=== PATIENT | male | born 1970 | race Caucasian/White ===

== ENCOUNTER 2016-12-12 21:01 | Emergency (ER) | payer OTHER ==
[2016-12-12 21:06] VITALS: RESP 18
[2016-12-12] MEDS ORDERED: IPRATROPIUM/ALBUTEROL 3 ML DEYVIAL ONE (21:33)
--- NOTE | 2016-12-12 21:35 | EDPHY ---
H & P Stated Complaint: c/o cold sx x 1 week - Medical/Surgical History Hx Asthma: No Hx Chronic Respiratory Disease: No Hx Diabetes: No Hx Cardiac Disease: No Hx Renal Disease: No Hx Cirrhosis: No Hx Alcoholism: No Hx HIV/AIDS: No Hx Splenectomy or Spleen Trauma: No Other PMH: siezure - Social History Smoking Status: Former smoker Time Seen by Provider: 12/12/16 21:22 HPI/ROS: CHIEF COMPLAINT: Cough x3 weeks HISTORY OF PRESENT ILLNESS: 46-year-old immunocompetent male complaining of 3 weeks of productive cough. Saw his primary care provider today, prescribed antibiotics. Comes to the ER complaining of dyspnea, continued cough. No syncope or near syncope near syncope. No chest pain. No back or flank pain. No nuchal rigidity. No headache. PRIMARY CARE PROVIDER: Dr. Hayden Ibarra REVIEW OF SYSTEMS: A ten point review of systems was performed and is negative with the exception of the items mentioned in the HPI PAST MEDICAL & SURGICAL HISTORY: No pertinent medical or surgical history SOCIAL HISTORY: nonsmoker PHYSICAL EXAM (Prior to examination, patient consented to physical exam, hands were washed and my usual and customary physical exam procedures followed) 1) GENERAL: Well-developed, well-nourished, alert and oriented. Appears nontoxic . 2) HEAD: Normocephalic, atraumatic 3) HEENT: Pupils equal, round, reactive to light bilaterally. Sclera anicteric. Nasopharynx, oropharynx, clear, no lesions. No tonsillar enlargement tonsillar exudate. Ears bilaterally with normal tympanic membranes. 4) NECK: Full range of motion, no meningeal signs. 5) LUNGS: Clear auscultation bilaterally, no wheezes, no rhonchi, no retractions. 6) HEART: Regular rate and rhythm, no murmur, no heave, no gallop. 7) ABDOMEN: No guarding, no rebound, no focal tenderness, negative McBurney's, 8) MUSCULOSKELETAL: No peripheral edema or discoloration. 9) BACK: No CVA tenderness. 10) SKIN: No rash, no petechiae. 11) Psychiatric: Patient is oriented X 3, there is no agitation. DIFFERENTIAL DIAGNOSIS: In no particular include but limited to pneumonia, bronchitis, RI, PE (Lucrecia Davies) Constitutional: Initial Vital Signs Temperature (C) 37.1 C 12/12/16 21:04 Heart Rate 112 H 12/12/16 21:04 Respiratory Rate 18 12/12/16 21:04 Blood Pressure 141/91 H 12/12/16 21:04 O2 Sat (%) 93 12/12/16 21:04 O2 Delivery Mode Room Air Allergies/Adverse Reactions: oxycodone Allergy (Verified 12/12/16 21:06) Home Medications: Medication Instructions Recorded Benzonatate [Tessalon Pearles (RX)] 200 mg PO TID PRN #15 cap 12/12/16 Medical Decision Making - Diagnostics Imaging: PA and Lateral Chest History: Chest pain. Findings: The heart and mediastinum are normal. Pulmonary vascularity is normal. The lungs are clear. There is no pleural fluid. A pneumothorax is not identified. Impression: No significant radiographic abnormality. Specifically, a source for chest pain is not identified. Dictated By: Bob Pleitez MD Images reviewed by myself (Lucrecia Davies) ED Course/Re-evaluation: 10:35 p.m.: Patient has been re-evaluated with serial exams. Received DuoNeb treatment in the ER. Re-examined at this time. Lungs are clear bilaterally. He is feeling significant improvement would like to be discharged home. Recommend he continue antibiotics until finished. He already has albuterol meter dose inhaler recommend using this every 4 hours. He has been prescribed also Tessalon Perles. Usual and customary URI precautions and instructions provided. (Lucrecia Davies) I did not see this patient while he was in the emergency department. However his care was discussed with the PA while the patient was in the department. I agree with treatment plan and management (Hayden Rosen) - Data Points Laboratory Results: 12/12/16 21:30 Influenza Typ A,B (DFA) NEGATIVE FOR FLU (NEGATIVE) Medications Given: Discontinued Medications Albuterol/Ipratropium (Duoneb) 3 ml IH EDNOW ONE Stop: 12/12/16 21:51 Last Admin: 12/12/16 21:56 Dose: 3 ml Departure - Departure Disposition: Home, Routine, Self-Care Clinical Impression: Upper respiratory infection Qualifiers: URI type: unspecified URI Qualified Code(s): J06.9 - Acute upper respiratory infection, unspecified Condition: Good Instructions: Upper Respiratory Infection (ED) Additional Instructions: . Return to the emergency department immediately for change in breathing habits , change in voice, change in swallowing habits, change in mental status, or any other symptoms that concern you. Referrals: Uma Morales PA [Primary Care Provider] - 12/14/16 Prescriptions: Benzonatate [Tessalon Pearles (RX)] 200 mg PO TID PRN #15 cap PRN Reason: Cough, Moderate
[2016-12-12] MEDS ORDERED: IPRATROPIUM/ALBUTEROL 3 ML DEYVIAL IH ONE (21:50)
[2016-12-12 22:56] VITALS: BP 148/68; PULSE 118; TEMP 98.6; O2SAT 94
== END 2016-12-12 22:56 | disposition home or self-care (01) ==
DX: J06.9 Acute upper respiratory infection, unspecified (principal); Z87.891 Personal history of nicotine dependence

== ENCOUNTER 2017-12-23 14:46 | Emergency (ER) | payer OTHER ==
--- NOTE | 2017-12-23 15:11 | EDPHY ---
H & P Stated Complaint: lifting large cabinet wednesday/felt rupture upper r bicep muscle Time Seen by Provider: 12/23/17 15:04 HPI/ROS: CHIEF COMPLAINT: Right biceps injury HISTORY OF PRESENT ILLNESS: The patient presents to the ED with complaints of a right bicep injury after he was moving furniture earlier in the week. The patient felt a pop in his right upper extremity. He has had pain and swelling in the bicep muscle since that time. He denies any acute numbness or weakness. He denies any additional acute complaints. REVIEW OF SYSTEMS: A comprehensive 10 point review of systems is otherwise negative aside from elements mentioned in the history of present illness. Source: Patient Exam Limitations: No limitations - Personal History Current Tetanus/Diphtheria Vaccine: Yes - Medical/Surgical History Hx Asthma: No Hx Chronic Respiratory Disease: No Hx Diabetes: No Hx Cardiac Disease: No Hx Renal Disease: No Hx Cirrhosis: No Hx Alcoholism: No Hx HIV/AIDS: No Hx Splenectomy or Spleen Trauma: No Other PMH: siezure. r hand/wrsit and knee surgery - Social History Smoking Status: Former smoker - Physical Exam Exam: General Appearance: Alert, no distress Head: Atraumatic Eyes: Pupils equal, round, reactive ENT, Mouth: No hemotympanum, no oral trauma Neck: Nontender, trachea midline Respiratory: No chest wall tender, subcutaneous air, lungs clear bilaterally Cardiovascular: Regular rate and rhythm Abdomen: Abdomen is soft and nontender, pelvis stable Skin: No lacerations, No abrasion Back: No midline T/L/S pain Extremities: Tenderness to palpation and soft tissue swelling noted in the right biceps tendon Constitutional: Initial Vital Signs Temperature (C) 37.1 C 12/23/17 14:49 Heart Rate 104 H 12/23/17 14:49 Respiratory Rate 18 12/23/17 14:49 Blood Pressure 151/93 H 12/23/17 14:49 O2 Sat (%) 98 12/23/17 14:49 O2 Delivery Mode Room Air Allergies/Adverse Reactions: oxycodone Allergy (Verified 12/23/17 14:49) Home Medications: Medication Instructions Recorded NK [No Known Home Meds] 12/23/17 Medical Decision Making - Diagnostics Imaging Results: Imaging Impressions Extremity Ultrasound 12/23/17 15:07 Impression: Complete tear with retraction of long head biceps tendon below the level of the bicipital groove. Results called and discussed with Dr. Fernando Elena on 12/23/2017, 16:04. ED Course/Re-evaluation: The patient presents to the emergency department for evaluation of a right biceps injury. The patient was taken for an ultrasound which does demonstrate a complete tear of the long head of the right biceps tendon. The patient will be referred to to the orthopedic surgeon at [facility] for further evaluation. Differential Diagnosis: Differential diagnosis considered includes hematoma, tendon rupture, muscle rupture Departure - Departure Disposition: Home, Routine, Self-Care Clinical Impression: Biceps rupture, proximal Condition: Good Instructions: Tendon Rupture (ED) Additional Instructions: 1. Please schedule a follow-up appointment with the orthopedic surgeon you have been referred to for further evaluation of your biceps muscle tear. Referrals: Fito Lucio MD [Medical Doctor] - As per Instructions
[2017-12-23 16:40] VITALS: BP 159/90
== END 2017-12-23 16:40 | disposition home or self-care (01) ==
DX: S46.211A Strain of muscle, fascia and tendon of other parts of biceps, right arm, initial encounter (principal); Z87.891 Personal history of nicotine dependence; X50.9XXA Other and unspecified overexertion or strenuous movements or postures, initial encounter; Y99.8 Other external cause status; Y93.89 Activity, other specified

== ENCOUNTER 2018-03-01 08:23 | Emergency (ER) | payer OTHER ==
[2018-03-01] MEDS ORDERED: CHLORDIAZEPOXIDE 25MG PREPK#6 BTL TAKEHOME ONE (10:00)
[2018-03-01] MEDS ORDERED: LORazepam 2 MG/ML INJ IVP ONE (10:00)
[2018-03-02 05:53] VITALS: BP 149/101
--- NOTE | 2018-03-03 16:46 | EDPHY ---
H & P Stated Complaint: speek and mobility issues Time Seen by Provider: 03/01/18 09:20 - Personal History Current Tetanus/Diphtheria Vaccine: Yes Current Tetanus Diphtheria and Acellular Pertussis (TDAP): Yes - Medical/Surgical History Hx Asthma: No Hx Chronic Respiratory Disease: No Hx Diabetes: No Hx Cardiac Disease: No Hx Renal Disease: No Hx Cirrhosis: No Hx Alcoholism: No Hx HIV/AIDS: No Hx Splenectomy or Spleen Trauma: No Other PMH: siezure. r hand/wrsit and knee surgery - Social History Smoking Status: Former smoker Constitutional: Initial Vital Signs Temperature (C) 37.1 C 03/01/18 08:25 Heart Rate 92 03/01/18 08:25 Respiratory Rate 16 03/01/18 08:25 Blood Pressure 149/101 H 03/01/18 08:25 O2 Sat (%) 92 03/01/18 08:25 O2 Delivery Mode Room Air Allergies/Adverse Reactions: oxycodone Allergy (Verified 12/23/17 14:49) Home Medications: Medication Instructions Recorded NK [No Known Home Meds] 12/23/17 Medical Decision Making ED Course/Re-evaluation: This note was created during prolonged hospital-wide EHR downtime and may be incomplete or contain inaccuracies to due circumstance limitations. CHIEF COMPLAINT: Shakiness, confusion HISTORY OF PRESENT ILLNESS: The patient is a 47 y/o male with a long history of alcoholism now sober for the last 2 weeks arriving with his for evaluation of shakiness and confusion. His is not sure if he has been sober for 2 weeks. He has been dealing with shakiness, balance difficulties, and some confusion for several days. He saw his PCP yesterday for these symptoms and to recheck lab work, which was normal apart from his cholesterol. PCP recommended following up with a neurologist and he has this scheduled for tomorrow. Per his , he's had intermittent confusion and this morning he thought his brother was at their house when the brother has been gone for a few weeks. He says he feels shaky and expressed to his he was concerned he has Parkinson's. He describes difficulty forming words, but no difficulty thinking about what he wants to say. No recent illness or trauma. REVIEW OF SYSTEMS: A 10 point review of systems was performed and is negative with the exception of the elements mentioned in the history of present illness. PHYSICAL EXAM: HR, BP, O2 Sat, RR. Temp noted General Appearance: Alert, well hydrated, appropriate, diaphoretic and tremulous. Head: Atraumatic without scalp tenderness or obvious injury Eyes: Pupils equal, round, reactive to light and accommodation, EOMI, no trauma , no injection. Nose: Atraumatic, no rhinorrhea, clear. Throat: Mucus membranes moist. Neck: Supple. Respiratory: No retractions, no distress, no wheezes, and no accessory muscle use. Lungs are clear to auscultation bilaterally. Cardiovascular: Regular rate and rhythm, no murmurs, rubs, or gallops. Good capillary refill all extremities. Gastrointestinal: Abdomen is soft, non-tender, non-distended, no masses, no rebound, no guarding, no peritoneal signs. Musculoskeletal: Normal active ROM of all extremities, atraumatic. Neurological: Alert, appropriate, and interactive. Nonfocal, tremulous. Skin: No rashes, good turgor, no nodules on palpation. PAST MEDICAL HISTORY: Alcoholism, seizure, concussion PAST SURGICAL HISTORY: ortho surgeries SOCIAL HISTORY: at bedside. PCP: RUSTAM Morales DIAGNOSTICS/PROCEDURES/CRITICAL CARE TIME: Brain MRI with and without contrast: negative DIFFERENTIAL DIAGNOSIS: The differential diagnosis for the patient's presentation included but was not limited to alcohol withdrawal, peripheral causes, central causes including CVA, TIA, electrolyte abnormalities and dehydration, cardiogenic causes, atypical causes like migraine syndrome. MEDICAL DECISION MAKING: This is a 47 y/o male with a long history of alcohol abuse who presents with symptoms of alcohol withdrawal, though patient reports he has not consumed alcohol for at least 2 weeks. His is concerned about word-finding difficulty, shakiness, and balance issues. Since patient reports he has been sober for 2 weeks, will need to rule out cerebellar issues related to skilled nursing alcohol abuse. MRI, IV, labs. MRI is normal. Labs show EtOH of 13, supporting alcohol withdrawal presentation. Discussed results with patient and recommended follow up with detox facility should he wish to detox. Return precautions discussed. This note was created during prolonged hospital-wide EHR downtime and may be incomplete or contain inaccuracies to due circumstance limitations. Departure - Departure Disposition: Home, Routine, Self-Care Condition: Good Referrals: Patient,NotPresent [Primary Care Provider] - As per Instructions Report Scribed for: Olaf Sullivan Report Scribed by: Carolyn Crandall
[2018-03-04 18:10] LABS: INR 0.97 (0.83-1.16); PROTIME(PATIENT) 13.1 SEC (12.0-15.0)
== END 2018-03-01 09:58 | disposition home or self-care (01) ==
DX: F10.239 Alcohol dependence with withdrawal, unspecified (principal); Z87.891 Personal history of nicotine dependence
CPT/HCPCS: J2060

== ENCOUNTER 2018-03-12 08:31 | Emergency (ER) | payer OTHER ==
[2018-03-12 08:48] VITALS: BP 116/80
--- NOTE | 2018-03-12 09:09 | EDPHY ---
H & P Time Seen by Provider: 03/12/18 09:01 HPI/ROS: CHIEF COMPLAINT: "I want detox" HISTORY OF PRESENT ILLNESS: The patient is a 47-year-old male who reports use alcohol heavily. Patient states he drank a box of wine last night. Last drink was at midnight. He now feels like he is detoxing. He feels anxious. Patient states that he last detoxified 1 month ago. He has had alcohol withdrawal seizures previously. Patient states that he went last week to [facility] and received a "banana bag."Patient denies any chest pain or shortness of breath. No abdominal pain. No nausea vomiting. No other drug use. REVIEW OF SYSTEMS: My complete review of systems is negative except as mentioned in the HPI. Past Medical/Surgical History: Includes alcohol abuse, hypertension Social history: Patient chews tobacco Smoking Status: Never smoked Physical Exam: 37, 116/80, 95, 16, 95% on room air GENERAL: No acute distress, alert. HEENT: Eyes normal to inspection, normal pharynx, no signs of dehydration. NECK: No thyromegaly, no lymphadenopathy, supple. RESPIRATORY: Clear to auscultation bilaterally, no rales, rhonchi or wheezing. CVS: Regular rate and rhythm, no rubs, murmurs, or gallops. ABDOMEN: Soft, nontender, nondistended, no organomegaly. Benign BACK: Normal to inspection, no CVA tenderness. SKIN: Normal color, no rash, warm, dry. No pallor. EXTREMITIES: No pedal edema, no calf tenderness, no Homans sign or cords, no joint swelling. NEURO/PSYCH: Alert and oriented x3, mildly anxious, normal motor sensory exam. No obvious cranial nerve deficit. Constitutional: Initial Vital Signs Temperature (C) 37 C 03/12/18 08:40 Heart Rate 95 03/12/18 08:40 Respiratory Rate 16 03/12/18 08:40 Blood Pressure 116/80 03/12/18 08:40 O2 Sat (%) 95 03/12/18 08:40 O2 Delivery Mode Room Air Allergies/Adverse Reactions: oxycodone Allergy (Mild, Verified 03/12/18 08:44) GI Home Medications: Medication Instructions Recorded "Some Heart Med" 03/12/18 Naltrexone HCl 50 mg PO 03/12/18 Medical Decision Making ED Course/Re-evaluation: In the emergency department I discussed possible etiologies with the patient. I discussed treatment options. I offered the patient detox at the [facility]. I stated that I would arrange this for him. I also informed him that I would not treat him as an outpatient for detox. Patient refused going to the [facility]. He requested banana bag. However, I informed the patient had not feel he needs a banana bag at this time. I recommended he take a multivitamin. I answered all the patient's questions prior to leaving. He was pleasant. Differential Diagnosis: My differential includes but is not limited to alcohol abuse, alcohol withdrawal , electrolyte abnormality, sugar abnormality Departure - Departure Disposition: Home, Routine, Self-Care Clinical Impression: Alcohol abuse Alcohol dependence Qualifiers: Substance use status: uncomplicated Qualified Code(s): F10.20 - Alcohol dependence, uncomplicated Condition: Good Instructions: Abuse of Alcohol (ED) Additional Instructions: I recommended you go to the [facility] for [facility]. We are able to range detox if you wish. Return with increasing complaints or any other concerns. Referrals: Hayden Ibarra [Primary Care Provider] - As per Instructions [facility] Detox 24 Hours [Outside] - 1 day without fail
== END 2018-03-12 09:15 | disposition home or self-care (01) ==
DX: F10.20 Alcohol dependence, uncomplicated (principal); I10 Essential (primary) hypertension